=== PATIENT | male | born 1945 | race Caucasian/White ===

== ENCOUNTER 2017-02-17 20:31 | Inpatient (IN) | payer MEDICARE ==
[~2017-02-17] VITALS: Ht 177.8 cm; Wt 104.5 kg
[~2017-02-17 20:31] MED LIST: ALBU8.5H4 IH; FLUT9.9S NS; GEMF600T3 PO; GLIP10TA10 PO; KLO1T PO; LOSA50TA3 PO; METH10OR11 ORAL; TERA1CAP3 PO
[2017-02-17 20:35] VITALS: BP 117/62; PULSE 92; RESP 16; O2SAT 93
--- NOTE | 2017-02-17 20:46 | ED.REPORT ---
HPI- Male Date of Service Feb 17, 2017 ED Provider: Oscar Yang MD A 71 year old male with a history of MS and cardiac catheterization two weeks ago, hepatitis C, type 2 diabetes and left-sided inguinal hernia is brought to the ED via EMS due to right testicular pain. The pain began approximately two hours ago when the pt was resting. The pt also noticed testicular swelling and a lump on the testicle that has not been present before. This is accompanied by nausea and lower abdominal pain but the pt denies fever, vomiting or problems with urination. The pt has a history of left-sided inguinal hernia but denies history of right-sided hernia. Nursing Notes Stated Complaint: RIGHT TESTICLE PAIN Chief Complaint: General Complaint Nursing Notes Reviewed: Yes Allergies: Coded Allergies: morphine (Verified Allergy, Mild, CONFUSION,AGGRESSION, 12/10/14) Scheduled Clonazepam (Clonazepam) 1 Mg Tab 1 MG PO BID Fluticasone Propionate (Flonase Allergy Relief) 9.9 Ml [place].susp 9.9 ML NS DAILY Gemfibrozil (Gemfibrozil) 600 Mg Tablet 150 MG PO DAILY Glipizide (Glipizide) 10 Mg Tablet 10 MG PO DAILY BEFORE BREAKFA Losartan Potassium (Cozaar) 50 Mg Tablet 50 MG PO DAILY Terazosin (Terazosin) 1 Mg Capsule 2 MG PO HS Scheduled PRN Albuterol HFA (Albuterol HFA) 8.5 Gm Hfa.aer.ad 2 PUFF IH Q4 PRN PRN For Wheezing Methadone (Methadone) 10 Mg/1 Ml Oral.conc 20 MG ORAL BID PRN PRN PRN General Time Seen by MD: 20:36 Chief Complaint Testicle painful right Hx Obtained From: Patient, EMS Arrived By: Ambulance Onset Occurred: 1 - 4 hours ago Symptom Duration: Since onset Recent Healthcare: Recent doctor visit Similar Sx Previous: No Past Medical History Past Medical History hepatitis C type 2 diabetes MS x2 left-sided inguinal hernia asthma COPD pneumonia hiatal hernia arthritis Past Surgical History cardiac catheterization 01/2017 back fision eye right shoulder jaw Reports: Carpal tunnel Smoking History Former Smoker (quit 1997) Ambulatory Status Independent Review of Systems Review of Systems Note: denies problems with urination Constitutional: Denies: Fever GI: Reports: Abdominal pain, Nausea, Denies: Vomiting Male: Reports Testicular pain, Reports Testicular swelling Musculoskeletal: Denies: Back pain, Neck pain Skin: Denies Rash Complete sys rev & neg: except as marked. Respiratory: Denies: Non-productive cough, Shortness of breath Cardiovascular: Denies: Chest pain Physical Exam Initial Vital Signs Vital Signs (First) Date Time Temp Pulse Resp B/P Pulse Ox O2 Delivery O2 Flow Rate FiO2 02/17/17 20:35 36.7 92 16 117/62 93 Room Air Initial VS: Reviewed Male Genitourinary: Penis NL, No penile discharge large right scrotal mass tense and exquisitely tender General/Constitutional: Awake, Alert Abdomen: Atraumatic, Soft, Non-tender Skin: Atraumatic, Color NL, No rash, Warm, Dry Head / Eyes: Atraumatic, Normocephalic, PERRL, EOMI ENT: Atraumatic, Airway patent, Mucous membranes moist Neck: Atraumatic, Supple, Full range of motion Respiratory / Chest: Atraumatic, Breath sounds NL, Breath sounds = bilat, No respiratory distress Cardiovascular: Heart rate NL, Regular rhythm, Heart sounds NL, No gallop, No murmurs, No rubs Back: Atraumatic, Full range of motion Upper Extremity / MS: Atraumatic, Full range of motion Lower Extremity / Pelvis / MS: Atraumatic, Full range of motion Neurologic: Oriented X3, Speech NL, No motor deficits, No sensory deficits Psychiatric: Affect NL, Mood NL Interpretation & Diagnostics Lab Results Interpretation Result Diagram: 02/17/17214302/17/172143 Test 02/17/17 21:44 02/18/17 01:02 White Blood Count 5.8th/mm3 (3.8-10.1) Red Blood Count 3.47mil/mm3 (4.40-5.80) Hemoglobin 11.8g/dL (13.8-17.2) Hematocrit 34.4% (41.0-50.0) Mean Corpuscular Volume 99.1fL (81-100) Mean Corpuscular Hemoglobin 34.0pg (27.0-35.0) Mean Corpuscular Hemoglobin Concent 34.3% (32.0-37.0) Red Cell Distribution Width 12.7% (12.3-15.4) Platelet Count 108bil/L (150-400) Neutrophils (%) (Auto) 59.5% (40-74) Lymphocytes (%) (Auto) 32.1% (14-46) Monocytes (%) (Auto) 7.0% (4-12) Eosinophils (%) (Auto) 0.9% (0-5) Basophils (%) (Auto) 0.3% (0-3) Sodium Level 141mEq/L (134-144) Potassium Level 4.4mEq/L (3.5-5.2) Chloride Level 103mEq/L (97-108) Carbon Dioxide Level 23mmol/L (18-29) Blood Urea Nitrogen 16mg/dL (8-27) Creatinine 0.66mg/dL (0.76-1.27) Estimat Glomerular Filtration Rate 126mL/min (>59) Glucose Level 286mg/dL (60-99) Calcium Level 8.5mg/dL (8.5-10.1) Total Bilirubin 0.2mg/dL (0.0-1.2) Aspartate Amino Transf (AST/SGOT) 85U/L (0-50) Alanine Aminotransferase (ALT/SGPT) 77U/L (0-44) Alkaline Phosphatase 72U/L (25-160) Total Protein 6.4g/dL (6.4-8.4) Albumin 3.3g/dL (3.4-5.0) Hold Naik Top Tube Received (Received) Urine Color Yellow (YELLOW) Urine Appearance Clear (CLEAR,HAZY) Urine pH 5.5 (5.0-8.0) Urine Specific [place] 1.025 (1.003-1.035) Urine Protein Negativemg/dL (NEG,TRACE) Urine Glucose (UA) 250mg/dL (NEGATIVE) Urine Ketones Negativemg/dL (NEGATIVE) Urine Occult Blood Negative (NEGATIVE) Urine Nitrite Negative (NEGATIVE) Urine Bilirubin Negative (NEGATIVE) Urine Urobilinogen Normalmg/dL (NORMAL) Urine Leukocyte Esterase Negative (NEGATIVE) Urine RBC 0-2/hpf (0-2) Urine WBC 0-5/hpf (0-5) Urine Epithelial Cells Few/hpf (NONE-MOD) Urine Crystals None seen (NONE SEEN) Urine Bacteria Few/hpf (NONE-FEW) Urine Hyaline Casts None/lpf (NONE) Urine Granular Casts None seen (NONE SEEN) Urine Waxy Casts None seen (NONE SEEN) Urine Red Blood Cell Casts None seen (NONE SEEN) Urine White Blood Cell Casts None seen (NONE SEEN) Urine Mucus None seen (None Seen) Urine Trichomonas None seen (NONE SEEN) Urine Yeast None (NONE SEEN) Urinalysis Comment None Urine Culture Reflexed Not indicated ECG Interpretation ECG Interpretation: normal sinus rhythm with a rate of 85 Time: 23:07 Interpreted by: ED physician CT Abd / Pelvis Interpretation CONCLUSION: There is some free fluid in the abdomen which measures approximately 39 Hounsfield units. It is unclear if this could represent some old blood. There are gallstones or sludge in the gallbladder but no wall thickening or surrounding inflammation. There is bilateral nephrolithiasis without evidence of hydronephrosis. There is right hydrocele. No inguinal mass is identified. Interpretation / Wet Read by: Interpret - Radiologist Re-Eval/Medical Decision Med Decision/Clinical Course 71-year-old male with a tender painful right inguinal mass. Exam was interpreted as inguinal hernia which was reduced and then subsequently recurred. Imaging demonstrated fluid tracking down from the peritoneal cavity only without bowel involvement. Surgery was consulted and admitted the patient with anticipation of operative management of hydrocele in the morning. Source of Hx: Old records Re-Evaluation/Progress : Time of Eval: 22:50 Patient Status: Condition improved Re-Evaluation/Progress Note: Pt rechecked, whose hernia is back out and painful. The plan for further treatment is discussed. Consultation #1: Call Returned at: 23:04 Concrete Boom Pump Operator: Agrees with eval, Agrees with plan Note: Consulted with Dr. Ridley, third year surgery resident, regarding pt's case. Dr. Ridley will see the pt in the ED. Consultation #2: Referral / Consult Name: Nancy Banerjee MD Consulted With: Surgeon Call Returned at: 00:48 Concrete Boom Pump Operator: Agrees with eval, Agrees with plan, Accepts admit Note: Spoke with Dr. Banerjee, surgeon, regarding pt's case. Dr. Banerjee agrees with the evaluation and agrees to admit the pt for surgery tomorrow. Counseled Regarding: Diagnosis, Lab results, Need for admission Discharge & Departure Impression: Primary Impression: Right hydrocele Disposition: ADMITTED TO HOSPITAL Discharge Condition All VS Reviewed: Yes Condition: Stable Referrals: Melissa Oneal MD (PCP) Scribe Attestation Portions of this note were transcribed by Channing Hinojosa. IDr. Yang personally performed the history, physical exam and medical decision-making; I reviewed and confirmed the accuracy of the information in the transcribed note. copies to: Melissa Oneal MD, Donald L MD Feb 17, 2017 20:46 CHANNING HINOJOSA Feb 17, 2017 20:54
[2017-02-17 21:56] LABS: BASOPHILS % (AUTO) 0.3 % (0-3); EOSINOPHILS % (AUTO) 0.9 % (0-5); Mean Corpuscular Volume 99.1 fL (81-100); NEUTROPHILS % (AUTO) 59.5 % (40-74); Platelet Count 108 bil/L (150-400)
[2017-02-17] MEDS: 0.9% Sodium Chloride 1,000 ML IV ONE ×2 (22:30→23:30)
[2017-02-17] MEDS: HYDROmorphone 0.5 mg/0.5 mL iSecure Syringe IVPUSH PRN ×2 (22:30→23:30)
[2017-02-17] MEDS: Ondansetron 2 mg/mL 2 mL Inj IVPUSH PRN ×2 (22:30→23:30)
--- NOTE | 2017-02-18 00:04 | PCM.CONSUR ---
Subjective Date of Service: Feb 17, 2017 History of Present Illness Иван Min is a 71 year old male with T2DM, CAD, BPH, asthma, chronic Hep C, HLD and recent cardiac catheterization 2 weeks ago for myocardial infarction ( no stents placed) who presents with acute onset right groin pain this evening. He reports having dinner and feeling some generalized abdominal discomfort and nausea. He went to the bathroom and after began to notice swelling in his right groin. The pain increased to a 10/10 and he couldn't get up. He was at home with his and they called an ambulance. He arrived at the [facility] ED in stable condition, hemodynamically normal and afebrile. He was found to have a right inguinal hernia that was initially reduced in the ER but recurred shortly after. He has a leukocytosis of 5.8, no electrolyte abnormalities, is comfortable at rest but reports that his discomfort is up to a 8/10 when the right groin is manipulated or reduction attempted. He reports no history of constipation, nausea, vomiting, similar abdominal pain or swelling in the right groin until this evening. He denies any chest pain, fevers, respiratory complaints. He does have a history of left inguinal hernia repair over 30 years ago related to a groin strain. Reason for Consultation Right inguinal hernia Allergy Allergies: Coded Allergies: morphine (Verified Allergy, Mild, CONFUSION,AGGRESSION, 12/10/14) Medications Albuterol HFA (Albuterol HFA) 8.5 Gm Hfa.aer.ad 2 PUFF IH Q4 PRN PRN For Wheezing (Reported) Clonazepam (Clonazepam) 1 Mg Tab 1 MG PO BID (Reported) Fluticasone Propionate (Flonase Allergy Relief) 9.9 Ml [place].susp 9.9 ML NS DAILY (Reported) Gemfibrozil (Gemfibrozil) 600 Mg Tablet 150 MG PO DAILY (Reported) Glipizide (Glipizide) 10 Mg Tablet 10 MG PO DAILY BEFORE BREAKFA (Reported) Losartan Potassium (Cozaar) 50 Mg Tablet 50 MG PO DAILY (Reported) Methadone (Methadone) 10 Mg/1 Ml Oral.conc 20 MG ORAL BID PRN PRN PRN (Reported ) Terazosin (Terazosin) 1 Mg Capsule 2 MG PO HS (Reported) Past Surgical History Surgeries: Yes (Back fusion 1994, Right thoracotomy with lung decortication 2002, Deshawn fundoplication 2002, Liver biopsy 2003) Patient/Family Past Surgical: Denies:: Anesthesia Reactions, Blood Transfuse Reaction, Blood Transfusions Social History Occupation: Retired, lives in [facility]. Hx Alcohol Use: No Hx Substance Use: No Hx Tobacco Use: Yes (Former smoker, 15 pack year history, quit .) PMH HEENT History History of ENT Problems?: Yes HEENT History: Denies:: Cataracts Dysphagia Sinus Problem Cardiovascular History Cardiovascular History: Denies:: Cardiac Surgery Chest Pain Congestive Heart Failure Edema Heart Murmur Hypertension Irregular Heartbeat Pacemaker Thrombophlebitis Respiratory History of Respiratory Problem: Yes Respiratory History: Positive for:: Asthma COPD Dyspnea Pneumonia Denies:: Chest Surgery Emphysema Hemoptysis Tuberculosis Neurological History Neurological History: Denies:: Alzheimer's Disease CVA Dementia Dizziness Headaches Parkinson's Disease Seizures Gastrointestinal History HX of GI Problems?: Yes Gastrointestinal History: Positive for:: Gastroesphageal Reflux Hepatitis (hep c) Hiatal Hernia Denies:: Diverticulitis Gastrointestinal Bleeding Heartburn Rectal Bleeding Genitourinary History Hx of Gu Problems?: No Genitourinary History: Denies: Kidney Stones Urinary Tract Infection Female/Male History Reproductive History Male: Denies: Scrotal Mass Musculoskeletal History Hx Musculoskeletal Problems?: Yes Musculoskeletal History: Positive for:: Back Injury (hx of epidural pain control) Denies:: Joint Replacement Musculoskeletal Trauma Psycho Social History Hx of Psycho/Social Problems?: No Psycho Social History: Denies:: Anxiety Bipolar Disorder Hx Depression Other History Other History: Positive for:: Hospitalization Denies:: Cancer Endocrine Disease Thyroid Disease Diabetes: Yes Social History Hx Alcohol Use: NoHx Substance Use: NoHx Tobacco Use: No Smoking Status: Former Smoker (quit 1997) Objective Exam Vital Signs & I/O Vital Sign- Last 8 Hours Date Time Temp Pulse Resp B/P Pulse Ox O2 Delivery O2 Flow Rate FiO2 02/17/17 20:35 36.7 92 16 117/62 93 Room Air Lab & Micro Results Laboratory Tests Test 02/17/17 21:44 White Blood Count 5.8th/mm3 (3.8-10.1) Red Blood Count 3.47mil/mm3 (4.40-5.80) Hemoglobin 11.8g/dL (13.8-17.2) Hematocrit 34.4% (41.0-50.0) Mean Corpuscular Volume 99.1fL (81-100) Mean Corpuscular Hemoglobin 34.0pg (27.0-35.0) Mean Corpuscular Hemoglobin Concent 34.3% (32.0-37.0) Red Cell Distribution Width 12.7% (12.3-15.4) Platelet Count 108bil/L (150-400) Neutrophils (%) (Auto) 59.5% (40-74) Lymphocytes (%) (Auto) 32.1% (14-46) Monocytes (%) (Auto) 7.0% (4-12) Eosinophils (%) (Auto) 0.9% (0-5) Basophils (%) (Auto) 0.3% (0-3) Sodium Level 141mEq/L (134-144) Potassium Level 4.4mEq/L (3.5-5.2) Chloride Level 103mEq/L (97-108) Carbon Dioxide Level 23mmol/L (18-29) Blood Urea Nitrogen 16mg/dL (8-27) Creatinine 0.66mg/dL (0.76-1.27) Estimat Glomerular Filtration Rate 126mL/min (>59) Glucose Level 286mg/dL (60-99) Calcium Level 8.5mg/dL (8.5-10.1) Total Bilirubin 0.2mg/dL (0.0-1.2) Aspartate Amino Transf (AST/SGOT) 85U/L (0-50) Alanine Aminotransferase (ALT/SGPT) 77U/L (0-44) Alkaline Phosphatase 72U/L (25-160) Total Protein 6.4g/dL (6.4-8.4) Albumin 3.3g/dL (3.4-5.0) Hold Naik Top Tube Received (Received) Result Diagram: 02/17/17214302/17/172143 Review of Systems: Constitutional: Negative, except as otherwise mentioned in the history above. Ophthalmologic: Negative, except as otherwise mentioned in the history above. Cardiovascular: Negative, except as otherwise mentioned in the history above. Respiratory: Negative, except as otherwise mentioned in the history above. Gastrointestinal: Negative, except as otherwise mentioned in the history above. Genitourinary: Negative, except as otherwise mentioned in the history above. Musculoskeletal: Negative, except as otherwise mentioned in the history above. Neurological: Negative, except as otherwise mentioned in the history above. Psychiatric: Negative, except as otherwise mentioned in the history above. Hematologic/Lymphatic: Negative, except as otherwise mentioned in the history above. Allergic/Immunologic: Negative, except as otherwise mentioned in the history above. Additional Information Additional Labs: Total bilirubin 0.2, ALT 85, AST 77, Albumin 3.3 CT Abdomen/Pelvis: Personally reviewed and [facility] report reviewed. Significant for large right hydrocele. No inguinal masses or obstructive physiology. See report for details. H&P Surgical Exam Exam General: Alert, Oriented X3, Cooperative, No Acute Distress HEENT: PERRLA, EOMI, Mucous membranes moist and pink Respiratory: Clear to Auscultation (No wheezes or crackles, breathing comfortably on room air.) Cardiac: Regular Rate/Rhythm, No Murmurs/Rubs/Gallops, Other (Right thoractomy incision well healed.) Abdomen: Normal bowel sounds, Soft, No tenderness, Other (4 laparoscopic incisions well healed s/p Deshawn, no rebound/gaurding. Obese abdomen.) Additional Information Left groin incision s/p hernia repair well healed. Bilateral testicles palpable , no masses or tenderness. Left groin without masses or tenderness, no evidence of hernia with palpation or valsalva. Right scrotum enlarged to about 3x the right side with fluid and no obvious intrabdominal contents. Tender with attempted reduction - able to reduce slightly before limited by pain, no overlying skin mottling, ecchymoses, or tenderness when not attempting reduction. Normal external genitalia. Assessment & Plan Assessment 71 year old male with acutely enlarge right hydrocele. Plan: Admit to General Surgery for optimization of pain control and right hydrocelectomy with groin exploration. Added on to the OR schedule. After reviewing the technical and convalescent aspects of the surgery in detail with the patient, reviewing alternatives, and answering questions he accepts the risks of surgery and wishes to proceed. We specifically reviewed damage to spermatic cord structures, low risk of testicular loss, and possible hydrocele recurrence. We will admit him and keep him NPO on intravenous fluids and pain control until his operation. He should be able to go home post operatively from PACU. Resuscitation Status: CPR: Attempt Resuscitation Katie Ridley MD Feb 18, 2017 00:04
[2017-02-18] MEDS ORDERED: Dextrose 5% Lactated Ringer's 1,000 ML IV SCH (00:55)
[2017-02-18] MEDS ORDERED: MetoCLOpramide 5 mg/mL 2 mL Inj IVPUSH PRN (00:55)
[2017-02-18] MEDS ORDERED: Ondansetron 2 mg/mL 2 mL Inj IVPUSH PRN (00:55)
[2017-02-18] MEDS ORDERED: Glucose 40% Oral Gel 15 Gm Tube PO PRN (01:00)
[2017-02-18] MEDS ORDERED: Albuterol 2.5 mg/3 mL Inhalation Solution NEB PRN (01:04)
[2017-02-18] MEDS ORDERED: Dextrose 10% 250 ML IV PRN (01:15)
[2017-02-18 01:46] VITALS: BP 119/55; PULSE 77; RESP 18; O2SAT 94
[2017-02-18 02:06] LABS: COLOR,URINE YELLOW (YELLOW)
[2017-02-18 02:07] LABS: APPEARANCE,URINE CLEAR (CLEAR,HAZY); OCCULT BLOOD,URINE NEGATIVE (NEGATIVE); PH,URINE 5.5 (5.0-8.0); UROBILINOGEN,URINE NORMAL (NORMAL)
--- NOTE | 2017-02-18 02:15 | NUR ---
Admit Patient received from ED. Patient is a 71yo male, with pain and swelling of the scrotum - Large right hydrocele. Scheduled for surgery tomorrow afternoon.Patient is NPO. Patient arrived via ED [place]. Transferred independently from [facility] to hospital bed. Settle and oriented to room and call light. Patient reported pain 8/10 - given meds for pain. Bed down, rails up, call light in reach. Care continues.
[2017-02-18 02:30] VITALS: BP 125/72; PULSE 74; RESP 20; O2SAT 96
[2017-02-18] MEDS: HYDROmorphone 1 mg/mL Inj IVPUSH PRN ×3 (03:51→12:29)
[2017-02-18] MEDS: Insulin LISPRO 300 Unit/3 mL Inj SUBQ SCH ×2 (07:49→11:44)
[2017-02-18 07:55] VITALS: BP 138/80; PULSE 70; RESP 18; O2SAT 95
--- NOTE | 2017-02-18 08:15 | DRSVH ---
PROCEDURE: CT ABDOMEN AND PELVIS WITH CONTRAST ([id number]) INDICATIONS: 71 year-old male with abdominal pain and right inguinal palpable mass. TECHNIQUE: After the administration of intravenous contrast, 5 mm thick sections acquired from the diaphragm to the symphysis. 5 mm coronal and sagittal reformats were acquired. For radiation dose reduction, the following was used: automated exposure control, adjustment of mA and/or kV according to patient siz e. COMPARISON: [facility], CT, ABDOMEN W&W/O CONTRAST, 02/20/2009, 10:58. FINDINGS: Preliminary interpretation rendered by [facility]. Image quality: Excellent. ABDOMEN: Lung bases: Lung bases are clear, except for patchy bibasilar atelectasis. Heart size is normal, wi th coronary artery atherosclerosis. Solid organs: Liver and spleen are normal in size. 2.9 cm hypodense lesion within segment 4B of the liver appears new since 2008, measuring 31 Hounsfield units in density. There is adjacent liver pare nchymal heterogeneity more inferiorly extending into the right hepatic lobe. Gallbladder wall thickne ss is normal, now containing small dependent hyperdense gallbladder sludge versus tiny stones. Gallbl adder is prominent in overall size at 9 x 5 cm. Biliary system is non dilated. Pancreas enhances no rmally. No adrenal nodules. Kidneys demonstrate normal size, without hydronephrosis. 4 mm nonobstru cting right renal stone is present, as well as 2 mm nonobstructing left renal stone. 2.6 cm anteromed ial left renal cortical parapelvic simple cyst has increased in size since 2008. 2.2 cm inferomedial left renal cortical exophytic simple cyst appears new. Peritoneum and bowel: Bowel loops demonstrate normal wall thickness and caliber. There is trace albertina hepatic and perisplenic ascites, as well as small free pelvic fluid. No free air. Nodes and vessels: No retroperitoneal or mesenteric adenopathy by size criteria. Several enlarged p eripancreatic lymph nodes are unchanged since 2008. Aorta and inferior vena cava are normal in size, with moderate aortoiliac atherosclerosis. Miscellaneous: No ventral hernias. PELVIS: Genitourinary: Bladder wall thickness is normal. Prostate gland is normal in overall size. Miscellaneous: No inguinal hernias or adenopathy. There is asymmetric moderate right scrotal hydroce le Bones: No suspicious bony lesions. No vertebral body compression fractures. Patient is status post L5 laminectomy, L4-L5 discectomy with interbody fusion and bilateral L4-S1 posterior fixation. IMPRESSION: 1. Moderate asymmetric right scrotal hydrocele may well explain the palpable right inguinal region ma ss. 2. 2.9 cm well-defined hypodense lesion within segment 4B of the liver appears new since 2008, too de nse to represent a hepatic simple cyst. In the setting of chronic hepatitis C, recommend further eval uation with liver protocol pre- and post contrast abdominal CT or MRI to assess for liver neoplasm. 3. Newly apparent hyperdense dependent gallbladder sludge versus tiny stones. Prominent overall size of the gallbladder may simply reflect a fasting state in the absence of any clinical signs of acute c holecystitis. 4. 2-4 mm bilateral nonobstructing renal stones. 5. Nonspecific trace perihepatic and perisplenic ascites is now present, as well as small pelvic asci param, of uncertain etiology. Dictated by: Gregor Chun M.D. on 02/18/2017 at 7:56 Approved by: Gregor Chun M.D. on 02/18/2017 at 8:13
[2017-02-18] MEDS ORDERED: ALBU8.5H2 INHALATION (08:22)
[2017-02-18] MEDS ORDERED: TIZA4TAB4 PO (08:27)
[2017-02-18] MEDS ORDERED: OXYC-530 PO (08:27)
[2017-02-18] MEDS ORDERED: ATOR10TA66 PO (08:27)
[2017-02-18] MEDS ORDERED: TAMS0.4C29 PO (08:27)
[2017-02-18] MEDS ORDERED: Sodium Chloride LOK Flush 10 mL Syringe IVFLUSH SCH (08:30)
[2017-02-18 08:32] VITALS: PULSE 71; RESP 16; O2SAT 94
--- NOTE | 2017-02-18 10:55 | PCM.DISURG ---
Surgical Discharge Instruction Date of Service Feb 18, 2017 Dates of Hospitalization Date of Hospital Admission Feb 18, 2017 at 01:45 Providers Admitting Physician: Nancy Banerjee MD Primary Care Physician: Melissa Oneal MD Attending Physician: Nancy Banerjee MD Discharge Diagnosis Discharge Diagnosis Right hydrocele Post Operative diagnosis Right hydrocele Diet Discharge Diet: No restrictions Activity Discharge Activity-General: No restrictions, Other (Right scrotum may be more uncomfortable toward end of day - elevate while lying flat for comfort.) Dressing and Incisional Care Hygiene: May shower Additional Instructions Discharge Instructions Wear supporting undergarment to elevate right hemiscrotum. Follow Up Plan Follow Up Plan Follow up with General Surgery in 1-2 weeks to schedule elective right hydrocelectomy. Follow-up Provider (F9): Nancy Banerjee MD Follow-up appointment: Weeks (1) Call your provider for: Other (Worsening right scrotal discomfort.) Katie Ridley MD Feb 18, 2017 10:55
--- NOTE | 2017-02-18 11:04 | PCM.DC.SUR ---
Discharge Summary Date of Service: Feb 18, 2017 Date of Hospital Admission: Feb 18, 2017 at 01:45 Date of Discharge: 02/18/2017 Diagnosis at Time of Discharge Right symptomatic hydrocele Problems: Operation None. Brief History and Physical: Иван Min is a 71 year old male with T2DM, CAD, BPH, asthma, chronic Hep C, HLD and recent cardiac catheterization 2 weeks ago for myocardial infarction ( no stents placed) who presents with acute onset right groin pain this evening. He reports having dinner and feeling some generalized abdominal discomfort and nausea. He went to the bathroom and after began to notice swelling in his right groin. The pain increased to a 10/10 and he couldn't get up. He was at home with his and they called an ambulance. He arrived at the [facility] ED in stable condition, hemodynamically normal and afebrile. He was found to have a right inguinal hernia that was initially reduced in the ER but recurred shortly after. He has a leukocytosis of 5.8, no electrolyte abnormalities, is comfortable at rest but reports that his discomfort is up to a 8/10 when the right groin is manipulated or reduction attempted. He reports no history of constipation, nausea, vomiting, similar abdominal pain or swelling in the right groin until this evening. He denies any chest pain, fevers, respiratory complaints. He does have a history of left inguinal hernia repair over 30 years ago related to a groin strain. Hospital Course: Иван Min is a 71 year old male who was evaluated for right scrotal discomfort and underwent CT abdomen and pelvis that identified a right hydrocele. He was admitted for pain control and reassured that the hydrocele did not need to be repaired urgently. His pain was well controlled and he met goals for discharge home on his home medications. He uses chronic opiates including methadone and oxycodone managed under a pain contract with his Primary Care Physician. We will arrange for him to have a pre-operative evaluation in the outpatient General Surgery clinic to schedule his elective right hydrocelectomy and also determine if a pre-operative anesthesia evaluation may be recommended given his recent chest pain, EKG changes and normal cardiac catheterization about 2 weeks ago to assses his albertina-operative risks before scheduling surgery. Disposition: Home Follow-up Plan: General Surgery clinic 1-2 weeks. Albuterol HFA (Proair HFA) 8.5 Gm Hfa.aer.ad 2 PUFFS INHALATION Q4H PRN PRN For Shortness of Breath (Reported) Atorvastatin Calcium (Atorvastatin Calcium) 10 Mg Tablet 10 MG PO DAILY ( Reported) Clonazepam (Clonazepam) 1 Mg Tab 1 MG PO BID (Reported) Fluticasone Propionate (Flonase Allergy Relief) 9.9 Ml [place].susp 9.9 ML NS DAILY (Reported) Gemfibrozil (Gemfibrozil) 600 Mg Tablet 150 MG PO DAILY (Reported) Glipizide (Glipizide) 10 Mg Tablet 10 MG PO DAILY BEFORE BREAKFA (Reported) Losartan Potassium (Cozaar) 50 Mg Tablet 50 MG PO DAILY (Reported) Methadone (Methadone) 10 Mg/1 Ml Oral.conc 20 MG ORAL BID PRN PRN PRN (Reported ) Tamsulosin ER (Tamsulosin ER) 0.4 Mg Cap.er.24h 1 CAPSULE PO DAILY (Reported) Terazosin (Terazosin) 1 Mg Capsule 2 MG PO HS (Reported) Tizanidine (Tizanidine) 4 Mg Tablet 1 TABLET PO DAILY (Reported) oxyCODONE (oxyCODONE) 5 Mg Tablet 2 TABLET PO BID (Reported) Katie Ridley MD Feb 18, 2017 11:04
--- NOTE | 2017-02-18 12:11 | NUR ---
[facility] signed
--- NOTE | 2017-02-18 14:15 | NUR ---
Social Work-attempted initial assessment/ discharge: Data:EMR Reviewed. Pt is a 71 y/o male who was admitted on 02/18/17 for incarcerated hernia per H&P. Pt's insurance is [facility] and [employer] and PCP Is tiki Oneal MD. EMR Reviewed. SW attempted to see pt, but SW updated by bedside RN that pt has been discharged. pt has been up independent in his room and his family transported pt home. No discharge needs identified. Assessment:Pt who is independent at baseline. Plan:Pt to discharge home today via POV. No discharge needs identified. АЛЕКСАНДР Pineda
--- NOTE | 2017-02-18 15:00 | NUR ---
Discharge Pt discharged to home via cab at 1400 hrs. PIV removed intact. VSS. Pain controlled. All personal possessions sent with pt. No new prescriptions Educated pt on signs and symptoms of infection. Advised pt to contact his PCP if he experiences increased pain. Pt to follow up with Dr Banerjee at [facility] surgery in 1-2 weeks. Provided clinic phone #. Pt expressed verbal understanding of the above and had no additional questions.
== END 2017-02-18 14:01 | disposition home or self-care (01) | DRG 730 ==
LOC: EDBD 20:31 → SED 20:31 → OSC 02-18 01:45 → OBSVTOIN 02-18 01:45
PROVIDERS: ADMIT Surgery; ATTEND Surgery
DX: N43.2 Other hydrocele (principal); E11.9 Type 2 diabetes mellitus without complications; J44.9 Chronic obstructive pulmonary disease, unspecified; B18.2 Chronic viral hepatitis C; I25.10 Atherosclerotic heart disease of native coronary artery without angina pectoris; E78.5 Hyperlipidemia, unspecified; N40.0 Benign prostatic hyperplasia without lower urinary tract symptoms; Z87.891 Personal history of nicotine dependence; Z79.51 Long term (current) use of inhaled steroids; I25.2 Old myocardial infarction

== ENCOUNTER 2017-02-20 15:48 | Inpatient (IN) | payer MEDICARE ==
[~2017-02-20] VITALS: Ht 177.8 cm; Wt 103.7 kg
[~2017-02-20 15:48] MED LIST changes: +ALBU8.5H2 INHALATION; -ALBU8.5H4 IH; +ATOR10TA66 PO; +OXYC-530 PO; +TAMS0.4C29 PO; +TIZA4TAB4 PO
[2017-02-20 16:18] VITALS: BP 143/78; PULSE 83; RESP 16; O2SAT 94
[2017-02-20 17:37] LABS: BASOPHILS % (AUTO) 0.2 % (0-3); EOSINOPHILS % (AUTO) 0.9 % (0-5); MONOCYTES % (AUTO) 8.7 % (4-12); Mean Corpuscular Hemoglobin 33.2 pg (27.0-35.0); NEUTROPHILS % (AUTO) 59.7 % (40-74); Platelet Count 91 bil/L (150-400)
[2017-02-20 17:49] LABS: INR 1.07 ratio
[2017-02-20 18:08] VITALS: BP 129/65; PULSE 74; O2SAT 93
--- NOTE | 2017-02-20 18:11 | ED.REPORT ---
HPI- Male Date of Service Feb 20, 2017 ED Provider: Kvng Anderson MD History of Present Illness: OCC A 71 year old male with a history of FL, CAD, hepatitis C and cardiac catheterization two weeks ago, hepatitis C, type II diabetes and left-sided inguinal hernia presents to the ED with scrotal swelling that became increasingly worse this morning. Patient was seen in the ED on 02/18 for right hydrocele and he was admitted for preoperative evaluation for a right hydrocelectomy with groin exploration. The patient was discharged in stable condition with plan to follow up on an outpatient basis. He presents to the ED this evening with concern because his pain and swelling have become increasingly worse since onset this morning. He also endorses bruising to the affected area that extends to his suprapubic abdomen. The pain is exacerbated by movement and he rates his current pain as a 10/10. Patient denies any fever, chills, nausea or vomiting. Medications currently include 4 .5 mg of oxycodone and 4 10 mg of methadone per day. Nursing Notes Stated Complaint: SWOLLEN SCROTUM Chief Complaint: General Complaint Nursing Notes Reviewed: Yes ([employer] not reconciled) Allergies: Coded Allergies: morphine (Verified Allergy, Mild, CONFUSION,AGGRESSION, 12/10/14) Scheduled Atorvastatin Calcium (Atorvastatin Calcium) 10 Mg Tablet 10 MG PO DAILY Clonazepam (Clonazepam) 1 Mg Tab 1 MG PO BID Fluticasone Propionate (Flonase Allergy Relief) 9.9 Ml Foss[place].susp 9.9 ML NS DAILY Gemfibrozil (Gemfibrozil) 600 Mg Tablet 150 MG PO DAILY Glipizide (Glipizide) 10 Mg Tablet 10 MG PO DAILY BEFORE BREAKFA Losartan Potassium (Cozaar) 50 Mg Tablet 50 MG PO DAILY Tamsulosin ER (Tamsulosin ER) 0.4 Mg Cap.er.24h 1 CAPSULE PO DAILY Terazosin (Terazosin) 1 Mg Capsule 2 MG PO HS Tizanidine (Tizanidine) 4 Mg Tablet 1 TABLET PO DAILY oxyCODONE (oxyCODONE) 5 Mg Tablet 2 TABLET PO BID Scheduled PRN Albuterol HFA (Proair HFA) 8.5 Gm Hfa.aer.ad 2 PUFFS INHALATION Q4H PRN PRN For Shortness of Breath Methadone (Methadone) 10 Mg/1 Ml Oral.conc 20 MG ORAL BID PRN PRN PRN General Time Seen by MD: 18:06 Chief Complaint Scrotal swelling Hx Obtained From: Patient Arrived By: Walk-in Onset Occurred: 9 - 12 hours ago Context of Onset: Other (Recent surgery) Symptom Duration: Since onset Location: : Scrotum Quality: Painful Radiation: : Suprapubic Severity: Current: Pain level 10 out of 10 Severity: Maximum: Pain level 10 out of 10 Associated with: Reports: Scrotal erythema, Scrotal swelling, Denies: Chills, Fever, Nausea, Vomiting Pertinent Negative: Pt denies other symptoms Recent Healthcare: Recent doctor visit, Recent hospitalization Similar Sx Previous: Yes Past Medical History Past Medical History Notes: Patient admitted 02/18 for Scrotal pain, suspected incarcerated hernia with clinical reduction and persistant hydrocele - then discharged with plan for outpatient surgical follow up Past Medical History 1. Hepatitis C 2. Type 2 diabetes 3. FL x2 4. Left-sided inguinal hernia 5. CAD 6. Asthma 7. COPD 8. Pneumonia 9. Arthritis Past Surgical History 1. cardiac catheterization 01/2017 2. Back fision 3. Eye 4. Right shoulder 5. Jaw Reports: Carpal tunnel Smoking History Former Smoker Social History Other Social History: Good social support, Local resident Ambulatory Status Independent Review of Systems Constitutional: Denies: Chills, Fever GI: Reports: Abdominal pain (Abd pain and bruising), Denies: Nausea, Vomiting Male: Reports Scrotal swelling, Reports Testicular pain Complete sys rev & neg: except as marked. Physical Exam Initial Vital Signs Vital Signs (First) Date Time Temp Pulse Resp B/P Pulse Ox O2 Delivery O2 Flow Rate FiO2 02/20/17 16:18 36.8 83 16 143/78 94 Room Air Initial VS: Reviewed Head / Eyes: Atraumatic, Normocephalic, PERRL Neck: Supple, Non-tender, Full range of motion Extremities: Vascular intact, Neuro intact, No swelling, No tenderness Skin: Warm, Dry, No cyanosis Neurologic: Alert, Oriented, Nonfocal Psychiatric: Mood/affect normal, Behavior normal, Normal thought content Male Genitourinary: Atraumatic, Testes NL, Epididymis NL, No mass Testes / Epidid / Scrotum: Positive: Scrotum swollen MALE : Scrotum is tense with ecchymosis present that extends up to the abdomen General/Constitutional: Awake, Alert, No acute distress Abdomen: Atraumatic, Soft, Non-tender Respiratory / Chest: Atraumatic, Breath sounds NL, Breath sounds = bilat, No respiratory distress Cardiovascular: Heart rate NL, Regular rhythm, Heart sounds NL, Peripheral circulation NL, Pulses = bilaterally CARDIO: No LE edema Interpretation & Diagnostics US SCROTUM: Impression: 1. Diffuse scrotal soft tissue swelling with possible gas. The proper clinical setting CT can be done to rule out Darshan's gangrene. 2. Large right hydrocele and enlarged epididymis. Right epididymis should be considered in the proper clinical setting. This report was transmitted to the emergency room at 02/20/2017 - 10:43:31 PM PDT. Lab Results Interpretation Result Diagram: 02/20/17 1725 02/20/17 1725 Test 02/20/17 17:25 02/20/17 18:06 White Blood Count 4.4th/mm3 (3.8-10.1) Red Blood Count 3.13mil/mm3 (4.40-5.80) Hemoglobin 10.4g/dL (13.8-17.2) Hematocrit 31.3% (41.0-50.0) Mean Corpuscular Volume 100.0fL (81-100) Mean Corpuscular Hemoglobin 33.2pg (27.0-35.0) Mean Corpuscular Hemoglobin Concent 33.2% (32.0-37.0) Red Cell Distribution Width 12.7% (12.3-15.4) Platelet Count 91bil/L (150-400) Neutrophils (%) (Auto) 59.7% (40-74) Lymphocytes (%) (Auto) 30.3% (14-46) Monocytes (%) (Auto) 8.7% (4-12) Eosinophils (%) (Auto) 0.9% (0-5) Basophils (%) (Auto) 0.2% (0-3) Prothrombin Time 11.5sec (8.1-12.5) Prothromb Time International Ratio 1.07ratio Sodium Level 139mEq/L (134-144) Potassium Level 4.0mEq/L (3.5-5.2) Chloride Level 101mEq/L (97-108) Carbon Dioxide Level 25mmol/L (18-29) Blood Urea Nitrogen 20mg/dL (8-27) Creatinine 0.86mg/dL (0.76-1.27) Estimat Glomerular Filtration Rate 93mL/min (>59) Glucose Level 71mg/dL (60-99) Calcium Level 8.9mg/dL (8.5-10.1) Total Bilirubin 0.7mg/dL (0.0-1.2) Aspartate Amino Transf (AST/SGOT) 82U/L (0-50) Alanine Aminotransferase (ALT/SGPT) 66U/L (0-44) Alkaline Phosphatase 73U/L (25-160) Total Protein 6.6g/dL (6.4-8.4) Albumin 3.5g/dL (3.4-5.0) Urine Color Yellow (YELLOW) Urine Appearance Clear (CLEAR,HAZY) Urine pH 5.5 (5.0-8.0) Urine Specific [place] 1.010 (1.003-1.035) Urine Protein Negativemg/dL (NEG,TRACE) Urine Glucose (UA) Negativemg/dL (NEGATIVE) Urine Ketones Negativemg/dL (NEGATIVE) Urine Occult Blood Negative (NEGATIVE) Urine Nitrite Negative (NEGATIVE) Urine Bilirubin Negative (NEGATIVE) Urine Urobilinogen Normalmg/dL (NORMAL) Urine Leukocyte Esterase Negative (NEGATIVE) Urine RBC 0-2/hpf (0-2) Urine WBC 0-5/hpf (0-5) Urine Epithelial Cells Few/hpf (NONE-MOD) Urine Crystals None seen (NONE SEEN) Urine Bacteria Few/hpf (NONE-FEW) Urine Hyaline Casts Occasional/lpf (NONE) Urine Granular Casts None seen (NONE SEEN) Urine Waxy Casts None seen (NONE SEEN) Urine Red Blood Cell Casts None seen (NONE SEEN) Urine White Blood Cell Casts None seen (NONE SEEN) Urine Mucus Present (None Seen) Urine Trichomonas None seen (NONE SEEN) Urine Yeast None (NONE SEEN) Urinalysis Comment None Urine Culture Reflexed Not indicated Lab Results Interpretation: CBC normal CMP normal UA negative CT Abd / Pelvis Interpretation IMPRESSION: 1. Persistent appearance of hydrocele on the right as identified on the 02/18/17 CT abdomen and pelvis exam. Suggestion of small development of left hydrocele is noted on today's study. 2. Unchanged appearance of cholelithiasis compared to 02/18/17. 3. Unchanged hepatic lesions and nonemergent recommendations of 02/18/17. Dictated by: Ilda Del Valle M.D. on 02/20/2017 at 19:31 Study type: Abdominal CT IV contrast, Abdom CT oral contrast Interpretation / Wet Read by: Interpret - Radiologist Re-Eval/Medical Decision Med Decision/Clinical Course This is a complicated 71-year-old male who turns the request of a surgical nurse for reevaluation of increasing right testicle pain and swelling. Patient presented several days ago, initially thought to have a possible incarcerated inguinal hernia, was then identified as having a large right hydrocele and was admitted to the general surgery team, which neurosurgery planning to do operative management. However the patient worsen next day the patient's "bumped " from the schedule, and was offered the chance to go home and follow-up as an outpatient-which he accepted. At time the plan is follow up with Dr. Banerjee. The patient reports shortly after going home is having worsening pain, now having bruising and swelling, increasing discomfort-and received a phone call from the surgical nurses to ask how he was doing today a explained how much pain he was having and how poorly he was doing, they recommended he come back to the emergency room. On exam the patient has a markedly swollen scrotum that is ecchymotic intense to the point I cannot really feel the testicles well. The right side is much worse than the left. There is marked ecchymosis. Penis itself is normal. Rest of exam is normal. Given the patient's been followed by general surgery, I started by consulting general surgery and Dr. Lemus came and saw the patient. He requested a repeat CT scan which was performed, he continues to demonstrate a right hydrocele is really explain the patient's acute pain is usually painless. This point he recommends urology evaluation. I talked urology requested an ultrasound which was performed--all the ultrasound raises the question of some gas, none was seen on CT, patient is not clinically toxic, and does not have clinical signs of Darshan's, nor other overt signs of epididymitis. The patient is very upset and wishes to be admitted for management. I have discussed the case with urology who request the patient be admitted to the hospitalist service and they will see tomorrow to determine further management. Patient required titrated doses of Dilaudid for pain control in the department ( complicated by his tolerance due to history of chronic opiates on methadone) Source of Hx: Old records Re-Evaluation/Progress #1: Time of Eval: 18:20 Re-Evaluation/Progress Note: Last meal time 11:00 this morning. Patient is informed of the plan to contact the general surgeon. Re-Evaluation/Progress #2: Time of Eval: 21:37 Patient Status: Pain improved Re-Evaluation/Progress Note: Pain has improved but is still present. Discussed plan to meet with urology and obtain an US to further evaluate his symtpoms. Re-Evaluation/Progress #3: Time of Eval: 22:54 Patient Status: Condition improved Re-Evaluation/Progress Note: Discussed US results and plan for admission and consult with urology. Pt understands and agrees. Consultation #1: Referral / Consult Name: Moshe Amor MD Consulted With: Surgeon Call Returned at: 18:39 Buoy Tender: Will see patient, Agrees with eval, Agrees with plan Note: Discussed patient condition. Will evaluate. Consultation #2: Referral / Consult Name: Abimael Zee MD Consulted With: Urology Call Returned at: 20:36 Buoy Tender: Will see patient, Agrees with eval, Agrees with plan Consultation #3: Referral / Consult Name: Abimael Zee MD Consulted With: Urology Call Returned at: 22:38 Note: Admit the pt. Consultation #4: Referral / Consult Name: Александр Higgins MD Consulted With: Hospitalist Call Returned at: 23:34 Buoy Tender: Will see patient, Agrees with plan, Accepts admit Counseled Regarding: Diagnosis, Lab results, Need for admission Discharge & Departure Impression: Primary Impression: Scrotal swelling Additional Impressions: Scrotal pain Hydrocele Hydrocele type: unspecified Qualified Code: N43.3 - Hydrocele, unspecified Disposition: ADMITTED TO HOSPITAL Discharge Condition All VS Reviewed: Yes Condition: Stable Referrals: Melissa Oneal MD (PCP) Scribe Attestation Portions of this note were transcribed by Brittany Pickett. Dr. Justin Laughlin, personally performed the history, physical exam and medical decision-making; I reviewed and confirmed the accuracy of the information in the transcribed note. Signed by: Brittany Pickett, 02/20/17. Portions of this note were transcribed by Purvi West. Dr. Justin Laughlin, personally performed the history, physical exam and medical decision-making; I reviewed and confirmed the accuracy of the information in the transcribed note. Signed by: Purvi West, 02/20/17. copies to: Melissa Oneal MD, Matthew F MD Feb 20, 2017 18:11 BRITTANY PICKETT Feb 20, 2017 18:21 PURVI WEST Feb 20, 2017 22:55
[2017-02-20 18:26] LABS: APPEARANCE,URINE CLEAR (CLEAR,HAZY); COLOR,URINE YELLOW (YELLOW); OCCULT BLOOD,URINE NEGATIVE (NEGATIVE); PH,URINE 5.5 (5.0-8.0); UROBILINOGEN,URINE NORMAL (NORMAL)
[2017-02-20] MEDS: HYDROmorphone 1 mg/mL Inj IVPUSH PRN ×3 (19:03→20:57)
--- NOTE | 2017-02-20 19:38 | DRSVH ---
PROCEDURE: CT ABDOMEN AND PELVIS WITH CONTRAST ([id number]) INDICATIONS: R inguinal and scrotal swelling and pain TECHNIQUE: After the administration of intravenous contrast, 5 mm thick sections acquired from the diaphragm to the symphysis. 5 mm coronal and sagittal reformats were acquired. For radiation dose reduction, the following was used: automated exposure control, adjustment of mA and/or kV according to patient dayo e. COMPARISON: [facility], CT, CT ABD PELVIS W CON, 02/18/2017, 0:06. FINDINGS: Image quality: Excellent. ABDOMEN: Lung bases: Lung bases are clear. Heart size is normal. Solid organs: Liver and spleen are normal in size. The previously identified low attenuation focus within the 4B segment of the liver is unchanged. In addition, a 2 mm low attenuation focus along the lateral right hepatic lobe seen on series 2 image 23, similar 5 mm focus within the hepatic dome on s eries 2 image 10, punctate focus in the anterior left lobe series 2 image 23 are also unchanged. Gall bladder demonstrates dependent hyperdensity without wall thickening it is prominently distended witho ut change. Biliary system is non dilated. Pancreas enhances normally. No adrenal nodules. Kidneys demonstrate normal size and enhancement, without hydronephrosis. Nonobstructing punctate bilateral calculi are identified. Left renal cyst is unchanged. Peritoneum and bowel: Bowel loops demonstrate normal wall thickness and caliber. No free fluid or a ir. Nodes and vessels: No retroperitoneal or mesenteric adenopathy by size criteria. Aorta and inferior vena cava are normal in size. Miscellaneous: No ventral hernias. PELVIS: Genitourinary: Bladder wall thickness is normal. Miscellaneous: Bilateral fat-containing inguinal hernias are present. The previously identified appa rent hydrocele within the right side is noted. Questionable development of left hydrocele in the inte rval since the prior exam is also noted. Bones: No suspicious bony lesions. No vertebral body compression fractures. IMPRESSION: 1. Persistent appearance of hydrocele on the right as identified on the 02/18/17 CT abdomen and pelvis exam. Suggestion of small development of left hydrocele is noted on today's study. 2. Unchanged appearance of cholelithiasis compared to 02/18/17. 3. Unchanged hepatic lesions and nonemergent recommendations of 02/18/17. Dictated by: Ilda Del Valle M.D. on 02/20/2017 at 19:31 Approved by: Ilda Del Valle M.D. on 02/20/2017 at 19:36
[2017-02-20 19:52] VITALS: BP 120/64; PULSE 75; O2SAT 95
[2017-02-20] MEDS ORDERED: Ondansetron 2 mg/mL 2 mL Inj IVPUSH ONE (21:25)
[2017-02-20 23:10] VITALS: BP 120/61; PULSE 70; O2SAT 92
[2017-02-20] MEDS ORDERED: 0.9% Sodium Chloride 1,000 ML IV SCH (23:57)
[2017-02-21] VITALS (10 sets, daily range): BP systolic 114–163; BP diastolic 62–85; PULSE 65–76; RESP 8–20; O2SAT 92–96
[2017-02-21] MEDS ORDERED: Polyethylene Glycol (PEG) 17 Gm Powder PO PRN
[2017-02-21] MEDS ORDERED: Alum-Mag Hydrox-Simeth 30 mL Suspension PO PRN
--- NOTE | 2017-02-21 00:10 | PCM.HPMED ---
Subjective Date of Service Feb 21, 2017 Primary Provider: Admitting Physician: Primary Care Physician: Melissa Oneal MD Attending Physician: Admit Status: From the Emergency Department Chief Complaint: Scrotal swelling History of Present Illness: Patient is 71-year-old male with history of AZ, CAD, hepatitis C, type II diabetes, left-sided inguinal hernia, cardiac cath 2 weeks ago, who presented to the emergency department with worsening scrotal swelling since this morning. Patient presented to the emergency department on 02/18/2017 for similar complaints. At that time he was admitted for preoperative evaluation for a right hydrocelectomy. He was scheduled for surgery but when the surgery schedule changed, he was given the option to have outpatient treatment which he opted for. This morning he developed worsening swelling and pain and has decided inpatient treatment is necessary. Patient has bruising throughout his scrotum extending suprapubically. Movement makes the pain worse. He rates it at a 10 out of 10. Patient denies penile discharge, dysuria, injury, fever, chills, nausea, vomiting, high risk sexual practices. Patient is on 40 mg of methadone daily and 2 mg oxycodone daily at home for chronic back pain Review of Systems: Complete ROS was performed and pertinent positives and negatives included in the history of present illness. All other findings were negative. Allergies Coded Allergies: morphine (Verified Allergy, Mild, CONFUSION,AGGRESSION, 12/10/14) Home Medications Atorvastatin Calcium (Atorvastatin Calcium) 10 Mg Tablet 10 MG PO DAILY Clonazepam (Clonazepam) 1 Mg Tab 1 MG PO BID Fluticasone Propionate (Flonase Allergy Relief) 9.9 Ml [place].susp 9.9 ML NS DAILY Gemfibrozil (Gemfibrozil) 600 Mg Tablet 150 MG PO DAILY Glipizide (Glipizide) 10 Mg Tablet 10 MG PO DAILY BEFORE BREAKFA Losartan Potassium (Cozaar) 50 Mg Tablet 50 MG PO DAILY Tamsulosin ER (Tamsulosin ER) 0.4 Mg Cap.er.24h 1 CAPSULE PO DAILY Terazosin (Terazosin) 1 Mg Capsule 2 MG PO HS Tizanidine (Tizanidine) 4 Mg Tablet 1 TABLET PO DAILY oxyCODONE (oxyCODONE) 5 Mg Tablet 2 TABLET PO BID Albuterol HFA (Proair HFA) 8.5 Gm Hfa.aer.ad 2 PUFFS INHALATION Q4H PRN PRN For Shortness of Breath Methadone (Methadone) 10 Mg/1 Ml Oral.conc 20 MG ORAL BID PRN PRN PRN PMH 1. Hepatitis C 2. Type 2 diabetes 3. [place] x2 4. Left-sided inguinal hernia 5. CAD 6. Asthma 7. COPD 8. Arthritis Surgical History 1. cardiac catheterization 01/2017 2. Back fusion 3. Left Orbital Repair 4. Right shoulder 5. Jaw Reports: Carpal tunnel Family History 1. Mother in childbirth 2. Patient doesn't know family history Social History Hx Alcohol Use: Yes (On weekends. Does not currently drink.) Hx Substance Use: No Hx Tobacco Use: No Smoking Status: Former Smoker Exam Vital Signs Vital Sign - Last Date Time Temp Pulse Resp B/P Pulse Ox O2 Delivery O2 Flow Rate FiO2 02/20/17 23:10 36.8 70 120/61 92 Room Air 02/20/17 16:18 16 Intake and Output 02/20/17 02/20/17 02/21/17 Cumulative From/Thru 15:00 23:00 07:00 02/20/17 16:18 - 02/20/17 21:08 Output Total 350 ml 350 ml Balance -350 ml -350 ml Output Urine Total 350 ml 350 ml # Voids 1 1 Exam General: Nondistressed, well-developed obese male HEENT: NC/AT, PERRLA, EOM intact. Nontender sinuses, no nasal discharge. Good dentation, no erythema, nor exudate present in oropharynx. No thyromegaly appreciated. CV: Regular rate and rhythm, no murmurs, gallops, or rubs appreciated RESP: Clear to auscultation bilaterally, no wheezes or rhonchi appreciated ABD: Bowel sounds normal, obese, nontender to palpation. :Significant ecchymosis covering scrotal region and extending to suprapubic, sparing the penis. Swollen and very tender to palpation scrotum, unable to palpate testicles or epididymis secondary to swelling and pain. No penile discharge visualized EXT: No joint swelling, no edema appreciated LYMPH: No cervical or axillary adenopathy appreciated NEURO: Symmetric face, cranial nerves grossly intact, strength intact bilaterally upper and lower extremities, sensation to light touch intact bilaterally upper and lower extremities. PSYCH: Oriented 3. Linear and appropriate conversation. Skin: No rashes or ecchymosis except as mentioned above Lab and Diagnostics Result Diagram: 02/20/17 1725 02/20/17 1725 X-Rays, CTs and MRIs PROCEDURE: CT ABDOMEN AND PELVIS WITH CONTRAST ([id number]) INDICATIONS: R inguinal and scrotal swelling and pain IMPRESSION: 1. Persistent appearance of hydrocele on the right as identified on the 02/18/17 CT abdomen and pelvis exam. Suggestion of small development of left hydrocele is noted on today's study. 2. Unchanged appearance of cholelithiasis compared to 02/18/17. 3. Unchanged hepatic lesions and nonemergent recommendations of 02/18/17. US SCROTUM: Impression: 1. Diffuse scrotal soft tissue swelling with possible gas. The proper clinical setting CT can be done to rule out Darshan's gangrene. 2. Large right hydrocele and enlarged epididymis. Right epididymis should be considered in the proper clinical setting. This report was transmitted to the emergency room at 02/20/2017 - 10:43:31 PM PDT. Assessment & Plan Patient is a 71-year-old male with a history of AZ, CAD, hepatitis C, type II diabetes, and left-sided inguinal hernia presented with increasing pain and swelling of the scrotum 1. Hydrocele, present upon admission and ongoing -Patient was previously scheduled for hydrocelectomy, surgery had been rescheduled and patient was going to follow-up outpatient but has since developed increasing pain and swelling -Pelvic CT redemonstrated hydrocele with possible development of hydrocele on the left without identification of gas -Ultrasound suspicious for gas but not demonstrated on CT. Enlarged right epididymis. -Urology has been consulted and will see the patient in the morning -Patient will be nothing by mouth tonight in case surgery will be scheduled 2. Opiate dependence, present on admission and ongoing -Patient is on opiates for chronic back pain. -Patient is on 10 mg oxycodone twice a day, and 20 mg methadone twice a day when necessary for pain -Continue home pain regimen 3. Type II diabetes, present on admission and ongoing -Patient is not insulin-dependent -Continue home medication -Bedside glucose to be ordered 4. Hepatitis C with elevated liver function tests, present on admission and ongoing -This is chronic and known -This would explain increased liver function values and anemia with low platelets 5. CAD -Continue home medications Patient has been admitted into inpatient, he is expected to spend greater than to midnight in the hospital Pain Evaluation: Adequate Pain Control VTE Prophylaxis: SCDs Resuscitation Status: CPR: Attempt Resuscitation Attending Statement The patient was seen and examined together with Dr. Heredia on 02/20 and I agree with the history, exam and plan as outlined in the note above. Carmen Manuel DO Feb 21, 2017 00:10 Александр Higgins MD Feb 21, 2017 07:13
[2017-02-21] MEDS: HYDROmorphone 0.5 mg/0.5 mL iSecure Syringe IVPUSH PRN ×2 (01:09→05:28)
--- NOTE | 2017-02-21 01:29 | NUR ---
admit note: pt. admitted for increasing scrotal edema, pain, purple color, since monday, pt. states he spoke with surgical nurse today who advised him to go to ER.
[2017-02-21] MEDS ORDERED: HYDROmorphone 0.5 mg/0.5 mL iSecure Syringe IVPUSH PRN (08:15)
[2017-02-21] MEDS ORDERED: Glucose 40% Oral Gel 15 Gm Tube PO PRN (08:25)
[2017-02-21] MEDS ORDERED: Albuterol 2.5 mg/3 mL Inhalation Solution NEB PRN (08:30)
[2017-02-21] MEDS ORDERED: Dextrose 10% 250 ML IV PRN (08:40)
[2017-02-21] MEDS ORDERED: KLO2T PO (09:15)
--- NOTE | 2017-02-21 09:49 | CONS ---
[address] [address] CONSULTATION REPORT PATIENT: JUDAH CODY : 1945 MR#: [id number] ADMIT: 02/21/2017 JOB ID: [id number] DATE OF SERVICE: 02/20/2017 CHIEF COMPLAINT/IDENTIFICATION: I am asked to see this 72-year-old man who returned to the emergency department with scrotal pain and bruising. HISTORY OF PRESENT ILLNESS: The patient presented two days ago on the , Monday evening, and was seen in consultation by the general surgeon senior construction project manager. At that time there was some thought that the emergency department physician had reduced right inguinal hernia, but that surgeon after examining the patient and reviewing the CAT scan felt that the patient most likely had a symptomatic hydrocele on the right, but no hernia. I admitted the patient for observation with plans for possible surgical exploration for asymptomatic hydrocele the next day. However, the next day was Monday at different surgeon was senior construction project manager who felt that this was best addressed as an outpatient. The patient was discharged from the medicine service with a diagnosis of a symptomatic right hydrocele versus symptomatic GERD, but reduced inguinal hernia. Because his pain persisted and he noted a scrotal discoloration the patient returns to the emergency department tonight. He tells me that his pain was never significantly improved and feels that his pain is "all over" and not just primarily in his testicle and scrotum or up in the right inguinal area. This should be noted that this is in the setting of chronic back pain, and the patient does take methadone on a daily basis. PAST MEDICAL HISTORY: Coronary artery disease, reactive airway disease, diabetes, history of hepatitis C, previous left groin hernia though it is not clear to me whether this was repaired. Medications, allergies, social history, and review of systems unchanged from his recent evaluation by my partner, or the General Surgery service. PHYSICAL EXAMINATION: BMI is 33. Vital signs are within normal limits and are recorded in the emergency department. The patient is nontoxic, seems in relatively good spirits despite stating that he is having 10/10 pain. Directed examination of the groin and scrotum reveals right groin and scrotal hypesthesia and discomfort, minimal right scrotal swelling, but there is marked ecchymosis and bruising around the testicular sac and coming up the right inguinal canal. LABORATORY DATA: White count is 4.4, hematocrit is 31. Electrolytes are normal. Liver function tests show mild elevation of AST and ALT. IMAGING: Due to their confusing history and difficult examination, we repeated his abdominal and pelvic CAT scan, which essentially is unchanged from two days ago. I have reviewed this and he does appear to have a fair amount of fat in the inguinal canal, but I cannot make out what appears to be his inguinal ligament so I did not think he has groin hernias. I can see the right hydrocele. CT today reports a small left hydrocele. IMPRESSION AND PLAN: A 71-year-old man with persistent right groin and testicular pain with the only objective finding being the ecchymosis associated with the attempts at reducing a possible incarcerated hernia last night, and the CT findings of a hydrocele that is small to medium at best. It is not clear to me what is the cause of his pain as I do not believe he has an incarcerated groin hernia and in my limited experience with hydrocele as they have universally been painless. At this point, I would recommend having him evaluated by Urology. There is no clear indication for surgical exploration for my point of view for his inguinal canal. As I do not believe, we have any objective saying that he has got an incarcerated right inguinal hernia or for that matter that he ever has had one. I have discussed the case with Dr. Anderson, and he will contact Urology on-call. I will be available tonight to discuss the case with the consulting urologist or to follow the patient in the hospital. If it is elected to admit him for his pain.
--- NOTE | 2017-02-21 10:09 | DRSVH ---
PROCEDURE: US TESTICULAR AND SCROTAL SONOGRAM ([id number]) INDICATIONS: pain and swelling TECHNIQUE: Real-time scanning was performed of the scrotum and testicles, with image documentation. Color and p ulse Doppler interrogation was performed of both testicles. COMPARISON: None. FINDINGS: Right: Testicle is normal in size at 2.9 x 2.6 x 2.3 cm, and homogenous in echotexture. Epididymis is asymmetrically enlarged compared to left. There is right hydrocele which contains echogenic debris . No varicocele. Overlying scrotal skin is thickened. Left: Testicle is normal in size at 2.9 x 2.3 x 2.1 cm, and homogeneous in echotexture. Epididymis is normal in overall size and morphology. No hydrocele or varicoceles. Overlying scrotal skin is th ickened. There is question of soft tissue gas seen within the scrotum inferior to the left testicle. Doppler: Color and pulse Doppler demonstrate normal and symmetric arterial flow in both testicles. N o definite venous flow visualized within the left testicle IMPRESSION: Bilateral scrotal wall thickening, and possible soft tissue gas involving the left inferior scrotum m ost likely reflecting cellulitis/infection, possibly Darshan's gangrene. As clinical warranted, CT e valuation could be performed. Complex right hydrocele and possible right epididymitis. Please correlate clinically and with urinaly sis data. Concordant with preliminary interpretation Dictated by: Matteo Dalton M.D. on 02/21/2017 at 9:01 Approved by: Matteo Dalton M.D. on 02/21/2017 at 9:07
[2017-02-21] MEDS ORDERED: Insulin LISPRO 300 Unit/3 mL Inj SUBQ SCH (12:00)
--- NOTE | 2017-02-21 12:29 | PCM.HPANE ---
Patient Data Date of Service: Feb 21, 2017 Surgeon Admitting Provider:Александр Higgins MD Attending Provider:Mgaaly Mcgarry DO Primary Care Physician:Melissa Oneal MD Other Provider: Reason for Visit Testicular Pain Ht/WT & BMI Height (Feet): 5 Height (Inches): 10.00 Weight (Kilograms): 103.700 Body Mass Index 32.73 Allergies Coded Allergies: morphine (Verified Allergy, Mild, CONFUSION,AGGRESSION, 12/10/14) Past Anesthesia History Anesthesia History: Denies:: Anesthesia Reactions, Malignant Hyperthermia Diabetes History Hx Diabetes?: Yes (on glipizide) Current Bedside Blood Glucose: 99 MRSA MRSA: No Medications Hypertension Medication: Yes Home Meds Incl Beta Vianca: No Reported Medications Clonazepam 2 Mg Tablet2 Mg PO HS PRN For Anxiety Ref 0 02/21/17 Tizanidine 4 Mg Tablet1 Tablet PO DAILY #90 02/18/17 Tamsulosin ER 0.4 Mg Cap.er.24h1 Capsule PO DAILY #90 02/18/17 Atorvastatin Calcium 10 Mg [id number] Mg PO DAILY #90 02/18/17 oxyCODONE 5 Mg Tablet2 Tablet PO BID #120 02/18/17 Albuterol HFA (Proair HFA)8.5 Gm Hfa.aer.ad2 Puffs INHALATION Q4H PRN For Shortness of Breath #1 INHALER 02/18/17 Terazosin 1 Mg Capsule2 Mg PO HS FOR HEART/BPH 30 Days Ref 0 12/09/14 Methadone 10 Mg/1 Ml Oral.conc20 Mg ORAL BID PRN PRN 12/09/14 Glipizide 10 Mg Qedsse82 Mg PO DAILY BEFORE BREAKFA DIABETES 30 Days 12/09/14 Gemfibrozil 600 Mg [id number] Mg PO DAILY HIGH TRIGLYCERIDES #60 TABLET 12/09/14 Fluticasone Propionate (Flonase Allergy Relief)9.9 Ml [place].susp9.9 Ml NS DAILY 12/09/14 Losartan Potassium (Cozaar)50 Mg [id number] Mg PO DAILY 12/09/14 Discontinued Reported Medications Clonazepam 1 Mg Tab1 Mg PO BID For Anxiety 30 Days Ref 0 12/09/14 Albuterol HFA 8.5 Gm Hfa.aer.ad2 Puff IH Q4 PRN For Wheezing #1 INHALER Ref 0 12/09/14 History History of ENT Problems?: Yes HEENT History: Positive for:: Sinus Problem Denies:: Cataracts Dysphagia Denture Type: Full- Upper Partial- Lower Teeth Condition: Missing Teeth Hx of Heart Problems?: Yes Cardiovascular History: Positive for:: Chest Pain Hypertension Denies:: Cardiac Surgery Congestive Heart Failure Edema Heart Murmur Irregular Heartbeat Pacemaker Thrombophlebitis Other History/Comments [place] per patient 2 weeks ago; no intervention on cath per patient, not on antiplatelet Hx of Respiratory Problem?: Yes Respiratory History: Positive for:: Asthma COPD Pneumonia Denies:: Chest Surgery Dyspnea Emphysema Hemoptysis Tuberculosis Other History/Comment breathing well today Hx Neurologic Problems?: No Neurological History: Denies:: Alzheimer's Disease CVA Dementia Dizziness Headaches Parkinson's Disease Seizures Hx of GI Problems?: Yes Hx of Problems?: Yes Genitourinary History: Positive for:: Kidney Stones Denies:: HX of Hemodialysis Urinary Tract Infection HX of Peritoneal Dialysis: No Male Hx: Positive for:: Prostate Problems ("Takes prostate pill") Testicular Surgery (Previous hernia repair) Denies:: Scrotal Mass Hx Musculoskeletal Problems?: Yes Musculoskeletal History: Positive for:: Back Injury (Steel plate w/ 6 screws) Denies:: Joint Replacement Musculoskeletal Trauma Hx of Psycho/Social Problems?: No Psycho Social History: Denies:: Anxiety Bipolar Disorder Hx Depression Hx Surgeries?: Yes (Back, Stomach) Hx Any Other Health Problems?: Yes Other History: Positive for:: Hospitalization (Collapsed lung) Denies:: Cancer Endocrine Disease Thyroid Disease History Blood Transfusions: Positive for:: Blood Transfusions Denies:: Blood Transfuse Reaction Hx Diabetes: Yes (on glipizide)Bedside Blood Glucose: 99 Hx Alcohol Use: Yes (occas)Hx Substance Use: No Smoking Status: Former Smoker Have You Smoked inLast 12 mo: No Stop/Bang Treated for Sleep Apnea?: No Do You Have a CPAP Machine?: No S-Snoring: Do You Snore Loudly: No T-Tired: feel tired, fatigued: No O-Obsered: Observed not breath: No P-Blood Pressure: treated: Yes B- Body Mass Index > 35 kg/m2: No A- Age over 50: Yes N- Neck Large Circumference: Yes G- Gender Male: Yes CONRAD Total Score: 3 CONRAD Risk Assessment: Low Risk, <3 Yes Risk Assessment Category Category 1A: Patient has history of documented sleep apnea, and HAS NOT received any narcotic, sedative or anesthesia administration during this stay. Category 1B: Patient has history of documented sleep apnea, and HAS received any narcotic , sedative or anesthesia administration during this stay Category 2: Patient has SUSPECTED Obstructive Sleep Apnea, and HAS received any narcotic , sedative or anesthesia administration during this stay. Category 3: Patient has SUSPECTED Obstructive Sleep Apnea and HAS NOT received narcotic, sedative or anesthesia administration during this stay. Category 4: Outpatient in Procedural Areas with known sleep apnea or who screen positive for High Risk via the STOP/BANG questionnaire. Exam Exam Vital Signs Vital Signs Date Time Temp Pulse Resp B/P Pulse Ox O2 Delivery O2 Flow Rate FiO2 02/21/17 07:40 36.6 76 154/73 96 Room Air General Appearance: Alert, Oriented X3, Cooperative, No Acute Distress HEENT/AIRWAY: MP 3 Lungs: Clear to Auscultation, Normal Air Movement Heart: Exam Unremarkable, Regular Rate/Rhythm, No Murmurs/Rubs/Gallops Meds/Labs/Diagnostics Admission Meds Current Medications Sodium Chloride (Normal Saline) 1,000 ml @ 100 mls/hr Q10H IV Last administered on 02/21/17t 01:08; Start 02/20/17 at 23:57 Bedside Blood Glucose: 99 Labs Test 02/20/17 17:25 02/20/17 18:06 White Blood Count 4.4th/mm3 (3.8-10.1) Red Blood Count 3.13mil/mm3 (4.40-5.80) Hemoglobin 10.4g/dL (13.8-17.2) Hematocrit 31.3% (41.0-50.0) Mean Corpuscular Volume 100.0fL (81-100) Mean Corpuscular Hemoglobin 33.2pg (27.0-35.0) Mean Corpuscular Hemoglobin Concent 33.2% (32.0-37.0) Red Cell Distribution Width 12.7% (12.3-15.4) Platelet Count 91bil/L (150-400) Neutrophils (%) (Auto) 59.7% (40-74) Lymphocytes (%) (Auto) 30.3% (14-46) Monocytes (%) (Auto) 8.7% (4-12) Eosinophils (%) (Auto) 0.9% (0-5) Basophils (%) (Auto) 0.2% (0-3) Prothrombin Time 11.5sec (8.1-12.5) Prothromb Time International Ratio 1.07ratio Sodium Level 139mEq/L (134-144) Potassium Level 4.0mEq/L (3.5-5.2) Chloride Level 101mEq/L (97-108) Carbon Dioxide Level 25mmol/L (18-29) Blood Urea Nitrogen 20mg/dL (8-27) Creatinine 0.86mg/dL (0.76-1.27) Estimat Glomerular Filtration Rate 93mL/min (>59) Glucose Level 71mg/dL (60-99) Calcium Level 8.9mg/dL (8.5-10.1) Total Bilirubin 0.7mg/dL (0.0-1.2) Aspartate Amino Transf (AST/SGOT) 82U/L (0-50) Alanine Aminotransferase (ALT/SGPT) 66U/L (0-44) Alkaline Phosphatase 73U/L (25-160) Total Protein 6.6g/dL (6.4-8.4) Albumin 3.5g/dL (3.4-5.0) Urine Color Yellow (YELLOW) Urine Appearance Clear (CLEAR,HAZY) Urine pH 5.5 (5.0-8.0) Urine Specific [place] 1.010 (1.003-1.035) Urine Protein Negativemg/dL (NEG,TRACE) Urine Glucose (UA) Negativemg/dL (NEGATIVE) Urine Ketones Negativemg/dL (NEGATIVE) Urine Occult Blood Negative (NEGATIVE) Urine Nitrite Negative (NEGATIVE) Urine Bilirubin Negative (NEGATIVE) Urine Urobilinogen Normalmg/dL (NORMAL) Urine Leukocyte Esterase Negative (NEGATIVE) Urine RBC 0-2/hpf (0-2) Urine WBC 0-5/hpf (0-5) Urine Epithelial Cells Few/hpf (NONE-MOD) Urine Crystals None seen (NONE SEEN) Urine Bacteria Few/hpf (NONE-FEW) Urine Hyaline Casts Occasional/lpf (NONE) Urine Granular Casts None seen (NONE SEEN) Urine Waxy Casts None seen (NONE SEEN) Urine Red Blood Cell Casts None seen (NONE SEEN) Urine White Blood Cell Casts None seen (NONE SEEN) Urine Mucus Present (None Seen) Urine Trichomonas None seen (NONE SEEN) Urine Yeast None (NONE SEEN) Urinalysis Comment None Urine Culture Reflexed Not indicated Plan Impression Patient chart reviewed, patient interviewed and anesthestic plan with risks, benefits, and alternatives discussed, and informed consent obtained. NPO per Anesth. Guidelines: Yes ASA Physical Status: ASA3 Severe Disease Anesthetic Plan: GA Bene/Risks/Altern/Consents: Yes HP Complete Prior to Induction: Yes Yg Brock MD Feb 21, 2017 12:29
[2017-02-21] MEDS ORDERED: Lactated Ringer's 500 ML IV PRN (12:52)
[2017-02-21] MEDS ORDERED: Lactated Ringer's 1,000 ML IV SCH (12:52)
[2017-02-21] MEDS ORDERED: Bupivacaine-MPF 0.5% 30 mL Inj INFILTRATE ONE (12:53)
[2017-02-21] MEDS ORDERED: Lactated Ringer's 1,000 ML IV ONE (12:54)
[2017-02-21] MEDS ORDERED: HYDROmorphone 1 mg/mL Inj IVPUSH PRN (12:55)
[2017-02-21] MEDS ORDERED: Phenylephrine 10,000 mCg/mL Inj IVPUSH PRN (12:55)
[2017-02-21] MEDS ORDERED: Ondansetron 2 mg/mL 2 mL Inj IVPUSH PRN ×2 (12:55)
[2017-02-21] MEDS ORDERED: fentaNYL-PF 50 mCg/mL 2 mL Inj IVPUSH PRN (12:55)
[2017-02-21] MEDS ORDERED: MetoCLOpramide 5 mg/mL 2 mL Inj IVPUSH PRN (12:55)
[2017-02-21] MEDS ORDERED: Dexamethasone 4 mg/mL Inj IVPUSH PRN (12:55)
[2017-02-21] MEDS ORDERED: EPHEDrine Sulfate 50 mg/mL Inj IVPUSH PRN (12:55)
[2017-02-21] MEDS ORDERED: Bacitracin Ointment Packet TOPICAL ONE (13:27)
--- NOTE | 2017-02-21 13:46 | PCM.ANEP1 ---
Post Anesthesia PACU Phase 1 Assessment Date of Service: Feb 21, 2017 Vital Signs 36.3 131/66 16 70 94% RA Anesthetic Administered: GA Level of Alertness: Sleepy, easy to arouse PÉREZ's with Equal Strength: Yes Pain: No Nausea or Vomiting: No CV Function & Hydration Stable: Yes Airway Device: Oxygen Delivery: Room Air Lungs: Clear to Auscultation, Normal Air Movement PACU Phase 2 Assessment Complications: No Follow up Care: N/A Patient Instructions Provided: N/A Yg Brock MD Feb 21, 2017 13:46
--- NOTE | 2017-02-21 15:15 | CONS ---
[address] [address] CONSULTATION REPORT PATIENT: JUDAH CODY : 1945 MR#: [id number] ADMIT: 02/21/2017 JOB ID: [id number] DATE OF SERVICE: 02/21/2017 REQUESTING PHYSICIAN: Kvng Anderson MD, [facility]. HISTORY: The patient is a pleasant, 71-year-old fellow who presented to [facility] emergency department several weeks ago with complaints of painful and tender right scrotal content swelling. Dr. Nancy Bnaerjee was consulted and the patient was admitted and initially was scheduled for hydrocelectomy and this somehow was changed to possibly be an outpatient procedure. At any rate, followup was not conducted. Patient presented late in the evening of February 20, 2017, with complaint of severe right scrotal content pain and development of new ecchymosis. CT imaging was repeated and essentially was unchanged with regard to appearance of a simple hydrocele, and it appeared that the ecchymosis was confined to the scrotal wall and skin. He refused discharge with outpatient followup, demanding repair. He denies specific trauma but admits that he probably injured it sitting down. ALLERGIES: MORPHINE (confusion and aggression and agitation, documented December 10, 2014). MEDICATIONS: 1. Atorvastatin. 2. Calcium 10 mg daily. 3. Clonazepam 1 mg b.i.d. 4. Flonase Allergy Relief 9.9 mL spray, suspension 9.9 mL daily. 5. Gemfibrozil 600 mg one p.o. daily. 6. Glipizide 10 mg p.o. daily before breakfast. 7. Losartan 50 mg p.o. daily. 8. Tamsulosin 0.4 mg daily. 9. Prazosin 2 mg p.o. q.h.s. 10. Tizanidine 4 mg p.o. daily. 11. Oxycodone 5 mg p.o. b.i.d. 12. Albuterol 8.5 two puffs q.4 h. p.r.n. for shortness of breath. 13. Methadone 10 mg/mL 20 mg oral b.i.d. p.r.n. PAST MEDICAL HISTORY: Hepatitis C, arthritis, pneumonia, COPD, asthma, coronary artery disease, left-sided inguinal hernia. Myocardial infarction x2. Diabetes type 2. PAST SURGICAL HISTORY: Carpal tunnel surgery, oral reconstruction right shoulder, ocular, spinal fusion, cardiac catheterization January 2017. SOCIAL HISTORY: Good social support. Local resident and a former cigarette smoker. EXAMINATION: He is a well-developed, moderately obese male, currently resting, in no distress. Head and neck exam is significant for poor dentition. Neck is supple. No JVD or adenopathy. Chest clear, equal and nonlabored bilaterally. Heart rate is regular. Abdomen: Obese, protuberant, soft. Has ecchymosis in the suprapubic area. Genitalia: The penis is spared of ecchymosis. The scrotal wall bilaterally is ecchymotic and there is decrease in the size of the hydrocele volume versus yesterday, which would support the fact that he may have ruptured it. Extremities: No edema, pallor, or cyanosis. DATABASE: WBC 4.4, hemoglobin 10.4, hematocrit 31.3. Potassium 4.0, BUN 20, creatinine 0.86. Glucose 71. CT as summarized above. Doppler ultrasound, February 20, 2017, demonstrates normal blood flow and internal architecture of the right testis. Simple fluid collection again demonstrated. IMPRESSION: Large right hydrocele with acute symptomatology related to trauma. Patient demand for definitive therapy. PLAN/DISCUSSION: 1. Informed consent and scheduling today for right hydrocelectomy. 2. Continue tamsulosin. CC: Patient's PCP
--- NOTE | 2017-02-21 16:09 | NUR ---
To OR pt went to OR via stretcher called and was updated at 1220. 1500 Pt returned from OR on stretcher. calling on phone, she was able to speak to him. Able to stand and transfer back into bed without c/o dizziness.
--- NOTE | 2017-02-21 16:56 | OP ---
[address] [address] OPERATIVE REPORT PATIENT: JUDAH CODY : 1945 MR#: [id number] ADMIT: 02/21/2017 JOB ID: [id number] DATE OF SURGERY: 02/21/2017 PREOPERATIVE DIAGNOSIS(ES): 1. Right hydrocele. 2. Right hematocele. POSTOPERATIVE DIAGNOSIS(ES): 1. Right hydrocele. 2. Right hematocele. OPERATION PERFORMED: 1. Right scrotal exploration. 2. Evacuation of right hematocele. 3. Right hydrocelectomy. SURGEON: Abimael Zee MD. FORGE SHOP MACHINE REPAIRER: Katie Ridley, third year resident, [facility]. ANESTHESIOLOGIST: Yg Brock MD. ANESTHESIA: General plus 0.5% plain Marcaine. FINDINGS: The scrotal wall was markedly thickened and ecchymotic with blood diffusely within the matrix of the dartos muscularis. Much of the hydrocele volume has drained due to trauma and there was about 3 tablespoons of fresh blood between the testicle and the tunica vaginalis and this was evacuated. The testicle was were relatively atrophic and of softer than normal texture consistent with age and associated comorbidities. PROCEDURE SUMMARY: The patient was positioned supine. Was administered general anesthesia. The lower abdomen, genitalia, and groin were then prepped and draped in sterile fashion. Local anesthetic was used to infiltrate the midline scrotal raphae at the level of the skin and subcutaneous dartos level. A midline incision was then made with the needle-tip cautery through the layers of the skin and subcutaneous dartos muscularis to the level of the tunica vaginalis. An appropriate plane was then developed between the dartos and the tunica vaginalis, and the entire tunica vaginalis and contained testis and epididymis were then delivered from the right hemiscrotum. The tunica vaginalis was then opened longitudinally at the interior aspect and the contents were drained with the findings as described above. Next, a children's book author repair was performed using 3-0 Monocryl and a running horizontal mattress technique. Two individual sutures were placed at the posterior aspect of the cord and inferior pole testis to the posterior and inferior scrotal wall, respectively. The skin and scrotal wall were then infiltrated at the right inferolateral aspect and a 15-Sami Jason drain was then brought through the skin with the drain positioned in the right hemiscrotum. The drain was secured at the level of the skin with a 2-0 silk using a Paul sandal technique. Next, the dartos fascia was closed with a running vertical mattress of 2-0 Monocryl. The skin layer was then reapproximated using a running horizontal mattress of 4-0 Monocryl. Antibiotic ointment was then applied to the incision line. Dry sterile fluffs were applied to the scrotum. An athletic supporter was then fitted to the patient. He was then awakened, transferred to [facility], and transported to recovery in stable condition.
--- NOTE | 2017-02-21 17:15 | PCM.DIMED ---
Discharge Instructions Date of Service Feb 21, 2017 Dates of Hospitalization Feb 21, 2017 at 00:21 Discharge Diagnosis Discharge Diagnosis L and R Hydrocele, s/p R hydrocelectomy Medication Instructions Additional med instructions Resume home meds Per Dr. Vaz "He was provided prescriptions for oxycodone and a graduated specimen cup to record Jason drain outputs. He is instructed to contact my office on the morning of February 22, 2017, to report drain volume output. His drain will be removed when it is indicated. He will follow up otherwise in my office in 3-4 weeks for routine postop check." Diet Discharge Diet: Heart Healthy, Diabetic Activity Discharge Activity: No restrictions Call your provider Call your provider for: Fever or Chills, Shortness of breath, Bleeding, Chest pain, Vomitting, Excessive diarrhea, Weakness (unilateral), Other Patient Instructions Patient Instructions May continue home medications as usually Follow-up plan F/U with Dr. Vaz's clinic on 02/22/17 in the AM Dressings, wound care per Magaly Tabor DO Feb 21, 2017 17:15
--- NOTE | 2017-02-21 17:25 | NUR ---
DC questions Per Dr Mcgarry request - called Dr Zee to clarify DC pain medicine and incisional care. left message
--- NOTE | 2017-02-21 17:38 | NUR ---
Social Work Note: Initial Assessment/Discharge Data& Assessment: EMR reviewed. Pt is a readmission. Per pt is medically ready for discharge. Иван Min is a 71 year old male admitted on 02/21/2017 for testicular pain. Pt had been in one week ago for similar symptoms, was discharged but pt still has not found relief with outpt follow up. Per MD pt is medically improved and ready for discharge. FORESTRY PILOT met with pt at bedside to discuss discharge planning, FORESTRY PILOT role explained and discharge planning checklist provided. Pt lives in [place] with his spouse in a one level home and is independent at baseline with all ADL's and no DME needs. Pt currently independent in his room. Pt does not have HH hx, SNF hx, LTC insurance or VA benefits. Pt has a living will completed with DPOA information filed with it, FORESTRY PILOT requested a copy when possible. Pt transporting pt home. MD does not identify any concerns for pt capacity for self care. Pt denies any needs. No other discharge needs identified. Plan: Per pt is medically ready for discharge home via POV. Pt denies any needs. No other discharge needs identified. [id number] [employer] Addendum: 02/21/17 at 1744 by HENRIETTA VARGAS Amended: Links added.
[2017-02-21] MEDS ORDERED: Phenylephrine/NS 100 mCg/mL 10 mL Syringe IVPUSH ONE (18:59)
[2017-02-21] MEDS ORDERED: Propofol 10,000 mCg/mL 20 mL Inj ONE (18:59)
[2017-02-21] MEDS ORDERED: fentaNYL-PF 50 mCg/mL 2 mL Inj ONE (18:59)
--- NOTE | 2017-02-21 19:31 | NUR ---
Discharge at 1900 Reviewed DC instructions with patient, stated understanding. Clarified pain management and wound care with Dr Zee prior to DC. Hard script for oxycodone in white folder. Pt taken out to private vehicle to home with . Just as pt leaving unit, security was bringing in w/ch to floor. Walked both out to car. All belongings taken.
--- NOTE | 2017-02-21 19:37 | DIS ---
[address] [address] DISCHARGE SUMMARY PATIENT: JUDAH CODY : 1945 MR#: [id number] ADMIT: 02/21/2017 JOB ID: [id number] DIS: ADMITTING DIAGNOSES: 1. Right scrotal hematocele. 2. History of right hydrocele. DISCHARGE DIAGNOSES: 1. Right scrotal hematocele. 2. History of right hydrocele. OPERATION PERFORMED: 1. Right scrotal exploration. 2. Evacuation of right hematocele. 3. Right hydrocelectomy. HOSPITAL SUMMARY: The patient was admitted during the late hours of February 20, 2017, to [facility] Emergency Department for evaluation of severe acute scrotal content pain. The patient is a poor historian, but the history was consistent with him having accidentally sat on his scrotal contents which was recently evaluated for large right hydrocele. Imaging was consistent with a normal flow and architecture of the right testicle with ecchymosis of the scrotal wall and simple hydrocele. Because of ongoing pain and desire for definitive therapy, discussion for consent and scheduling was obtained and he was taken the operating room on the morning of February 21, 2017 and underwent uncomplicated exploration of the right hemiscrotum, evacuation of hematocele, and right hydrocelectomy under general anesthetic. His postop course was entirely unremarkable. He was stable for discharge. He was provided prescriptions for oxycodone and a graduated specimen cup to record Jason drain outputs. He is instructed to contact my office on the morning of February 22, 2017, to report drain volume output. His drain will be removed when it is indicated. He will follow up otherwise in my office in 3-4 weeks for routine postop check. cc: Katie Ridley MD of [facility]
--- NOTE | 2017-02-21 22:04 | PCM.DC.MED ---
Discharge Summary Date of Service Feb 21, 2017 Dates of Hospitalization Date of Hospital Admission Feb 21, 2017 at 00:21 Date of Discharge: Feb 21, 2017 Providers: Admitting Physician: Александр Higgins MD Primary Care Physician: Melissa Oneal MD Attending Physician: Magaly Mcgarry DO Diagnosis at Time of Discharge Diagnosis at Time of Discharge L and R Hydrocele, s/p R hydrocelectomy Procedures XRay, CTs & MRIs PROCEDURE: CT ABDOMEN AND PELVIS WITH CONTRAST ([id number]) INDICATIONS: R inguinal and scrotal swelling and pain IMPRESSION: 1. Persistent appearance of hydrocele on the right as identified on the 02/18/17 CT abdomen and pelvis exam. Suggestion of small development of left hydrocele is noted on today's study. 2. Unchanged appearance of cholelithiasis compared to 02/18/17. 3. Unchanged hepatic lesions and nonemergent recommendations of 02/18/17. US SCROTUM: Impression: 1. Diffuse scrotal soft tissue swelling with possible gas. The proper clinical setting CT can be done to rule out Darshan's gangrene. 2. Large right hydrocele and enlarged epididymis. Right epididymis should be considered in the proper clinical setting. This report was transmitted to the emergency room at 02/20/2017 - 10:43:31 PM PDT. Brief History Patient is 71-year-old male with history of MA, CAD, hepatitis C, type II diabetes, left-sided inguinal hernia, cardiac cath 2 weeks ago, who presented to the emergency department with worsening scrotal swelling since this morning. Patient presented to the emergency department on 02/18/2017 for similar complaints. At that time he was admitted for preoperative evaluation for a right hydrocelectomy. He was scheduled for surgery but when the surgery schedule changed, he was given the option to have outpatient treatment which he opted for. This morning he developed worsening swelling and pain and has decided inpatient treatment is necessary. Patient has bruising throughout his scrotum extending suprapubically. Movement makes the pain worse. He rates it at a 10 out of 10. Patient denies penile discharge, dysuria, injury, fever, chills, nausea, vomiting, high risk sexual practices. Patient is on 40 mg of methadone daily and 2 mg oxycodone daily at home for chronic back pain Hospital Course Patient is a 71-year-old male with a history of MA, CAD, hepatitis C, type II diabetes, and left-sided inguinal hernia presented with increasing pain and swelling of the scrotum #Hydrocele, present upon admission s/p R Hydrocelectomy -Patient was previously scheduled for hydrocelectomy, surgery had been rescheduled and patient was going to follow-up outpatient but has since developed increasing pain and swelling -Pelvic CT redemonstrated hydrocele with possible development of hydrocele on the left without identification of gas -Ultrasound suspicious for gas but not demonstrated on CT. Enlarged right epididymis. -Urology has been consulted and Patient underwent R hydrocelectomy on 02/21/[address] Vaz. - says ok to d/c pt in the evening following the procedure, patient is asked to call his office in the am (Per Татьяна, pt is asked to call their office daily). Elevate the affected area, pain control per surgeon. # Opiate dependence, presumed stable -Patient is on opiates for chronic back pain. -Patient is on 10 mg oxycodone twice a day, and 20 mg methadone twice a day when necessary for pain -Continue home pain regimen, Dr. Vaz wrote for extra pain meds to cover postop pain #Type II diabetes, presumed stable -Patient is not insulin-dependent -Continue home medication at d/c #Hepatitis C with elevated liver function tests, present on admission and ongoing -This is chronic and known -This would explain increased liver function values and anemia with low platelets #CAD chronic presumed stable -Continued home medications # Cholelithiasis chronic active -- F/U via PCP for an elective cholecystectomy if pain becomes an issue or patient becomes symptomatic Exam Vital Signs (Last) Date Time Temp Pulse Resp B/P Pulse Ox O2 Delivery O2 Flow Rate FiO2 02/21/17 16:55 36.9 68 20 131/73 93 Room Air Exam General: NAD HEENT: Missing lower teeth Heart: RRR, no s3/s4 Lungs: CTA, no crackles or wheezes Abd: Soft, Non distended : Examined in the presence of nurse. Scrotum and testicles appear dark red from old blood. Sutures are present over the R-sided scrotum. Minimal bloody drainage on dressings, drain is present. Neuro: No focal deficits Psych: No anxiety Test 02/20/17 17:25 02/20/17 18:06 White Blood Count 4.4th/mm3 (3.8-10.1) Red Blood Count 3.13mil/mm3 (4.40-5.80) Hemoglobin 10.4g/dL (13.8-17.2) Hematocrit 31.3% (41.0-50.0) Mean Corpuscular Volume 100.0fL (81-100) Mean Corpuscular Hemoglobin 33.2pg (27.0-35.0) Mean Corpuscular Hemoglobin Concent 33.2% (32.0-37.0) Red Cell Distribution Width 12.7% (12.3-15.4) Platelet Count 91bil/L (150-400) Neutrophils (%) (Auto) 59.7% (40-74) Lymphocytes (%) (Auto) 30.3% (14-46) Monocytes (%) (Auto) 8.7% (4-12) Eosinophils (%) (Auto) 0.9% (0-5) Basophils (%) (Auto) 0.2% (0-3) Prothrombin Time 11.5sec (8.1-12.5) Prothromb Time International Ratio 1.07ratio Sodium Level 139mEq/L (134-144) Potassium Level 4.0mEq/L (3.5-5.2) Chloride Level 101mEq/L (97-108) Carbon Dioxide Level 25mmol/L (18-29) Blood Urea Nitrogen 20mg/dL (8-27) Creatinine 0.86mg/dL (0.76-1.27) Estimat Glomerular Filtration Rate 93mL/min (>59) Glucose Level 71mg/dL (60-99) Calcium Level 8.9mg/dL (8.5-10.1) Total Bilirubin 0.7mg/dL (0.0-1.2) Aspartate Amino Transf (AST/SGOT) 82U/L (0-50) Alanine Aminotransferase (ALT/SGPT) 66U/L (0-44) Alkaline Phosphatase 73U/L (25-160) Total Protein 6.6g/dL (6.4-8.4) Albumin 3.5g/dL (3.4-5.0) Urine Color Yellow (YELLOW) Urine Appearance Clear (CLEAR,HAZY) Urine pH 5.5 (5.0-8.0) Urine Specific [place] 1.010 (1.003-1.035) Urine Protein Negativemg/dL (NEG,TRACE) Urine Glucose (UA) Negativemg/dL (NEGATIVE) Urine Ketones Negativemg/dL (NEGATIVE) Urine Occult Blood Negative (NEGATIVE) Urine Nitrite Negative (NEGATIVE) Urine Bilirubin Negative (NEGATIVE) Urine Urobilinogen Normalmg/dL (NORMAL) Urine Leukocyte Esterase Negative (NEGATIVE) Urine RBC 0-2/hpf (0-2) Urine WBC 0-5/hpf (0-5) Urine Epithelial Cells Few/hpf (NONE-MOD) Urine Crystals None seen (NONE SEEN) Urine Bacteria Few/hpf (NONE-FEW) Urine Hyaline Casts Occasional/lpf (NONE) Urine Granular Casts None seen (NONE SEEN) Urine Waxy Casts None seen (NONE SEEN) Urine Red Blood Cell Casts None seen (NONE SEEN) Urine White Blood Cell Casts None seen (NONE SEEN) Urine Mucus Present (None Seen) Urine Trichomonas None seen (NONE SEEN) Urine Yeast None (NONE SEEN) Urinalysis Comment None Urine Culture Reflexed Not indicated Discharge Medications Discharge Medications Atorvastatin Calcium (Atorvastatin Calcium) 10 Mg Tablet 10 MG PO DAILY ( Reported) Fluticasone Propionate (Flonase Allergy Relief) 9.9 Ml [place].susp 9.9 ML NS DAILY (Reported) Gemfibrozil (Gemfibrozil) 600 Mg Tablet 150 MG PO DAILY (Reported) Glipizide (Glipizide) 10 Mg Tablet 10 MG PO DAILY BEFORE BREAKFA (Reported) Losartan Potassium (Cozaar) 50 Mg Tablet 50 MG PO DAILY (Reported) Tamsulosin ER (Tamsulosin ER) 0.4 Mg Cap.er.24h 1 CAPSULE PO DAILY (Reported) Terazosin (Terazosin) 1 Mg Capsule 2 MG PO HS (Reported) Tizanidine (Tizanidine) 4 Mg Tablet 1 TABLET PO DAILY (Reported) oxyCODONE (oxyCODONE) 5 Mg Tablet 2 TABLET PO BID (Reported) As needed Albuterol HFA (Proair HFA) 8.5 Gm Hfa.aer.ad 2 PUFFS INHALATION Q4H PRN PRN For Shortness of Breath (Reported) Clonazepam (Clonazepam) 2 Mg Tablet 2 MG PO HS PRN PRN For Anxiety (Reported) Methadone (Methadone) 10 Mg/1 Ml Oral.conc 20 MG ORAL BID PRN PRN PRN (Reported ) Additional med instructions Resume home meds Followup Plan Follow-up plan F/U with Dr. Vaz's clinic ion 02/22/17 in the AM Discharge Diet: Heart Healthy, Diabetic Discharge Activity: No restrictions Patient Instructions May continue home medications as usually Time spent Greater than 30 minutes was spent in preparation of discharge with greater than 50% of that time dedicated to patient counseling and coordination of care. Magaly Mcgarry DO Feb 21, 2017 17:25
[2017-02-22] MEDS ORDERED: Fluticasone 0.05% 15 Spray/2 Gm 16 Gm Nasal Spray NASAL SCH (08:30)
== END 2017-02-21 19:00 | disposition home or self-care (01) | DRG 711 ==
LOC: SED 15:48 → MOC 02-21 00:21
PROVIDERS: ADMIT Hospitalist; ATTEND Family Medicine
PROC: 0V9 Male Reproductive System, Drainage (ICD-10-PCS; 2017-02-21)
PROC: 0VJ80ZZ Inspection of Scrotum and Tunica Vaginalis, Open Approach (ICD-10-PCS; 2017-02-21)
PROC: 0VB60ZZ Excision of Right Tunica Vaginalis, Open Approach (ICD-10-PCS; principal; 2017-02-21 12:00)
DX: N43.2 Other hydrocele (principal); F11.20 Opioid dependence, uncomplicated; E66.9 Obesity, unspecified; Z68.32 Body mass index [BMI] 32.0-32.9, adult; N50.1 Vascular disorders of male genital organs; B18.2 Chronic viral hepatitis C; K80.20 Calculus of gallbladder without cholecystitis without obstruction; E11.9 Type 2 diabetes mellitus without complications; I25.10 Atherosclerotic heart disease of native coronary artery without angina pectoris; Z87.891 Personal history of nicotine dependence; Z79.51 Long term (current) use of inhaled steroids; I25.2 Old myocardial infarction